=== PATIENT | male | born 1980 | race Caucasian/White ===

== ENCOUNTER 2022-02-19 16:13 | Emergency (ER) | payer MEDICAID ==
[~2022-02-19] VITALS: Ht 185.4 cm; Wt 100.0 kg
[2022-02-19] MEDS ORDERED: IBUP-2029 MT (16:22)
[2022-02-19] MEDS ORDERED: AMOX-424 MT (16:22)
[2022-02-19] MEDS ORDERED: HYDROCODONE/ACETAMINOPHEN 5/325MG TABLET PO ONE (16:30)
[2022-02-19] MEDS ORDERED: T3 PO (17:37)
[2022-02-19 18:30] VITALS: BP 127/76
== END 2022-02-19 18:31 | disposition home or self-care (01) ==
LOC: ER 16:13
DX: K04.7 Periapical abscess without sinus (principal); R68.84 Jaw pain
CPT/HCPCS: 99283